=== PATIENT | male | born 1950 | race Caucasian/White ===

== ENCOUNTER 2016-12-06 21:12 | Emergency (ER) | payer OTHER, BC | END 2016-12-06 21:20 | disposition home or self-care (01) | LOC: ER 21:12 | DX: S46.811A Strain of other muscles, fascia and tendons at shoulder and upper arm level, right arm, initial encounter (principal); V49.9XXA Car occupant (driver) (passenger) injured in unspecified traffic accident, initial encounter | CPT/HCPCS: 99284 ==